=== PATIENT | female | born 1995 | race Caucasian/White ===

== ENCOUNTER 2017-09-26 00:31 | Observation (INO) ==
[2017-09-26] MEDS ORDERED: 0.9 % Sodium Chloride 1,000 ML IVC ONE (01:36)
[2017-09-26] MEDS ORDERED: Ondansetron 4 MG/2 ML VIAL IVP PRN ×2 (01:38→07:56)
--- NOTE | 2017-09-26 01:42 | Emergency Department Note ---
Disposition Clinical Impression: Acute appendicitis Qualifiers: Acute appendicitis type: unspecified acute appendicitis type Qualified Code(s) : K35.80 - Unspecified acute appendicitis Disposition: Admitted As Inpatient Condition: Good Referrals: Tiffanie Pantoja MD [Primary Care Provider] - Forms: ED Satisfaction Letter, Work/School Release Time of Disposition: 05:30 Abdominal Pain HPI - General Chief Complaint: ED Abdominal Pain Stated Complaint: ABD Pain Time Seen by Provider: 09/26/17 01:27 Source: patient Nursing Notes Reviewed: Yes Vital Signs Reviewed: Yes - History of Present Illness HPI Narrative: 21-year-old female presents with right lower quadrant abdominal pain. She mentions she first felt this yesterday him and describes it as stabbing. Had gone away, the returned when she [place] earlier today. She describes at that time was more severe, is accompanied with nausea. She does describe having 1 episode of vomiting. He states since that time the pain has been constant, and worsening. She had taken some antinausea medications that help with nausea, but that pain has persisted. She denies any migration, radiation of her pain. She mentioned she has felt fevers and chills. She mentioned she does have dyspareunia, however she mentions that has always been the case and denies any worse recently. She denies any dysuria, vaginal discharge, vaginal bleeding, flank pain, back pain, abnormal menstrual periods, new sexual partners. Pain Scale: 8 - Related Data Home Medications Medication Instructions Recorded Confirmed Control 10/04/15 CeleXA 10/04/15 Previous Rx's Medication Instructions Recorded Acetaminophen [Tylenol] 325 mg PO Q6HR PRN #10 tablet 10/04/15 Azithromycin [Azithromycin 6-Tab 250 mg PO DAILY 5 Days tab 10/04/15 Pack] Magic Mouthwash 5 ml PO TID PRN #120 ml 10/04/15 Doxycycline 100 mg PO BID #14 capsule 10/12/15 methylPREDNISolone [Medrol] 4 mg PO TAPER #21 tablet 10/12/15 Cyclobenzaprine [Flexeril] 10 mg PO HS #10 tablet 03/31/16 Allergies Allergy/AdvReac Type Severity Reaction Status Date / Time Penicillins [PCN] Allergy Hives Verified 03/31/16 00:18 All systems ED: reviewed and negative except as stated. Review of Systems: As Per HPI Constitutional: Denies: fever, chills, weakness Eyes: Denies: vision change ENT ED: Denies: throat pain Cardiovascular: Denies: palpitations Respiratory: Denies: dyspnea Gastrointestinal: Reports: as per HPI Genitourinary: Denies: dysuria, frequency, hematuria, discharge, abnormal menses Musculoskeletal: Denies: back pain, neck pain Integumentary: Denies: rash Neurological: Denies: headache Psychiatric: Denies: anxiety Endocrine: Denies: fatigue Hematological/Lymphatic: Denies: easy bleeding Allergic/Immunologic: Denies: facial swelling Abdominal Pain PMH - Past Medical History Medical history: Reports: no medical history Female Surgical History: Reports: Adenoidectomy, sinus surgery, Tonsillectomy [employer] history: Reports: no [employer] history Psychiatric history: Reports: depression - Social History Smoking status: Never smoker Alcohol use: Reports: none Drug use: Reports: none Physical Exam - General Limitations: no limitations General appearance: alert, in no apparent distress - Head Head exam: normocephalic - Eye Eye exam: Present: EOMI. Absent: conjunctival injection - ENT ENT exam: normal oropharynx, mucous membranes moist - Neck Neck exam: Present: normal inspection, full ROM - Chest Chest inspection: Present: normal inspection, symmetric chest wall rise - Respiratory Respiratory exam: Present: normal lung sounds bilaterally. Absent: respiratory distress - Cardiovascular Cardiovascular exam: Present: normal rhythm, tachycardia - Abdominal Exam Abdominal exam: Present: soft, tenderness, tenderness at McBurney's Point. Absent: distention, guarding, Sullivan's sign, Rovsing's sign Abdominal tenderness: Present: RLQ. Absent: epigastrium - Extremities Exam Extremities exam: Present: normal inspection, full ROM, normal capillary refill - Back Exam Back exam: Present: full ROM. Absent: CVA tenderness (R), CVA tenderness (L) - Neurological Exam Neurological exam: Present: alert, oriented X3 - Psychiatric Psychiatric exam: Present: normal affect, normal mood - Skin Skin exam: Present: warm, dry, intact, normal color. Absent: rash, cyanosis, diaphoresis Course Course Narrative: She is more pain, starting yesterday, but worsening more severe today. He comes with nausea and vomiting. Vital signs show that she is a low-grade fever. Tachycardic at 140. On exam she does have right lower quadrant tenderness. No flank pain. Patient denies any urinary symptoms, new sexual partners, or history of sexual transmitted diseases. She declines antiemetics and analgesics at this time. Fluids ordered. Workup initiated. - Reevaluation(s) Reevaluation #1: Trace amount of blood and urinate, otherwise her cup and appears unremarkable. Patient states nausea worsening, she is agreeable to antiemetics. She states her pain continues. Patient is agreeable for CT abdomen and pelvis. I did discuss this with Dr. Bahena who agreement. Time: 02:36 Reevaluation #2: CT scan reviewed, concerning for acute appendicitis. This was discussed with patient and her mother are the agreeable to surgery. We will attempt to control her pain, nausea. Surgery has been paged. Time: 04:40 - Consultations Consultation #1: Patient discussed with on-call general surgeon Dr. Angelo, who agreed to accept patient under her service, and advised for IV Cipro and Flagyl antibiotics. Time: 04:50 Consultation #2: Dr. Angelo called back and mentions she will see patient in ER in approx 20min. Time: 04:58 Vital Signs Temperature 99.9 F H 09/26/17 00:34 Pulse Rate 140 09/26/17 00:34 Respiratory Rate 18 09/26/17 00:34 Blood Pressure 114/70 09/26/17 00:34 O2 Sat by Pulse Oximetry 98 09/26/17 00:34 Temperature 98.2 F 09/26/17 04:45 Pulse Rate 112 09/26/17 04:45 Respiratory Rate 18 09/26/17 04:45 Blood Pressure 109/68 09/26/17 04:45 O2 Sat by Pulse Oximetry 98 09/26/17 04:45 Oxygen Delivery Oxygen Delivery Room Air Abdominal Pain - MDM Narrative Medical decision making narrative: 21-year-old female presents with right lower quadrant pain. Patient was discussed with Dr. Bahena, who also had face time with patient, and agreed with workup evaluation and CT scan. CT scan showed acute appendicitis. Patient was discussed with Dr. Angelo who has accepted patient, for surgery. Patient vitals have been stable. She initially had declined analgesics and antiemetics but was agreeable to some during her course here and her pain and nausea have been controlled. She was initially tachycardic but this did improve. Labwork unremarkable. Vitals have been stable. Abdomen/Pelvis CT 09/26/17 02:36 IMPRESSION: Findings are most compatible with acute appendicitis. No evidence of abscess or intra-abdominal free air. Hepatic steatosis. D/ / Jeff Olvera MD / Jeff Olvera MD Interpreting Provider: Jeff Olvera MD Laboratory Tests 09/26/17 09/26/17 09/26/17 01:41 01:41 01:50 WBC 7.3 RBC 4.55 Hgb 13.6 Hct 39.6 MCV 87.0 MCH 29.9 MCHC 34.3 RDW 11.9 Plt Count 259 MPV 9.8 Immature Gran % 0.4 Seg Neutrophils % 83.4 Lymphocytes % 10.9 Monocytes % 4.9 Eosinophils % 0.1 Basophils % 0.3 Neutrophils # 6.1 Lymphocytes # 0.8 Monocytes # 0.4 Eosinophils # 0.0 Basophils # 0.0 Sodium Potassium Chloride Carbon Dioxide BUN Creatinine Est GFR ( Amer) Est GFR (Non-Af Amer) BUN/Creatinine Ratio Glucose Calculated Osmolality Lactic Acid Calcium Total Bilirubin Direct Bilirubin Indirect Bilirubin AST ALT Alkaline Phosphatase Serum Total Protein Albumin Globulin Albumin/Globulin Ratio Lipase Urine Color Yellow Urine Clarity Clear Urine pH 6.5 Ur Specific Cunningham 1.006 L Urine Protein Negative Urine Glucose (UA) Normal Urine Ketones Negative Urine Blood Trace H Urine Nitrite Negative Urine Bilirubin Negative Urine Urobilinogen Normal Ur Leukocyte Esterase Negative Urine Microscopic RBC 0-3 Urine Microscopic WBC 0-3 Ur Squamous Epith Cells Moderate H Urine Bacteria None Seen Hyaline Casts None Seen Ur Culture Indicated? NO Urine Test Negative 09/26/17 09/26/17 01:50 01:50 WBC RBC Hgb Hct MCV MCH MCHC RDW Plt Count MPV Immature Gran % Seg Neutrophils % Lymphocytes % Monocytes % Eosinophils % Basophils % Neutrophils # Lymphocytes # Monocytes # Eosinophils # Basophils # Sodium 135 L Potassium 3.5 Chloride 106 Carbon Dioxide 22 L BUN 9 Creatinine 0.73 Est GFR ( Amer) > 60 Est GFR (Non-Af Amer) > 60 BUN/Creatinine Ratio 12 Glucose 106 H Calculated Osmolality 279 L Lactic Acid 0.7 Calcium 9.1 Total Bilirubin 0.6 Direct Bilirubin 0.1 Indirect Bilirubin 0.5 AST 14 ALT 9 Alkaline Phosphatase 48 Serum Total Protein 7.2 Albumin 4.0 Globulin 3.2 Albumin/Globulin Ratio 1.3 Lipase 10 L Urine Color Urine Clarity Urine pH Ur Specific [place] Urine Protein Urine Glucose (UA) Urine Ketones Urine Blood Urine Nitrite Urine Bilirubin Urine Urobilinogen Ur Leukocyte Esterase Urine Microscopic RBC Urine Microscopic WBC Ur Squamous Epith Cells Urine Bacteria Hyaline Casts Ur Culture Indicated? Urine Test - Lab Data Lab results reviewed: Yes I reviewed the patient's lab results. Result diagrams: 09/26/17 01:50 09/26/17 01:50 Lab Results 09/26/17 09/26/17 09/26/17 Range/Units 01:41 01:41 01:50 WBC 7.3 (4.3-11.1) K/mcL RBC 4.55 (3.82-4.97) M/mcL Hgb 13.6 (11.5-15.4) g/dL Hct 39.6 (35.3-44.9) % MCV 87.0 (83.0-100.0) fL MCH 29.9 (28.0-33.3) pg MCHC 34.3 (31.6-35.5) g/dL RDW 11.9 (11.5-14.5) % Plt Count 259 (140-400) K/mcL MPV 9.8 (9.4-12.4) fL Immature Gran % 0.4 (0-4) % Seg Neutrophils % 83.4 % Lymphocytes % 10.9 % Monocytes % 4.9 % Eosinophils % 0.1 % Basophils % 0.3 % Neutrophils # 6.1 (1.6-8.9) K/mcL Lymphocytes # 0.8 (0.6-4.6) K/mcL Monocytes # 0.4 (0.0-1.3) K/mcL Eosinophils # 0.0 (0.0-0.6) K/mcL Basophils # 0.0 (0.0-0.2) K/mcL Sodium (136-145) mEq/L Potassium (3.5-5.1) mEq/L Chloride (98-107) mEq/L Carbon Dioxide (23-29) mEq/L BUN (6-20) mg/dL Creatinine (0.60-1.20) mg/dL Est GFR ( Amer) (> 60) Est GFR (Non-Af Amer) (> 60) BUN/Creatinine Ratio (6-26) Glucose (70-105) mg/dL Calculated Osmolality (280-300) Lactic Acid (0.5-2.2) mmol/L Calcium (8.6-10.3) mg/dL Total Bilirubin (0.3-1.0) mg/dL Direct Bilirubin (0.0-0.2) mg/dL Indirect Bilirubin (0.0-1.2) mg/dL AST (13-39) Units/L ALT (7-52) Units/L Alkaline Phosphatase (34-104) Units/L Serum Total Protein (6.4-8.9) g/dL Albumin (3.5-5.7) g/dL Globulin (2.4-3.5) g/dL Albumin/Globulin Ratio (1.1-2.2) Lipase (11-82) Units/L Urine Color Yellow (Yellow) Urine Clarity Clear (Clear) Urine pH 6.5 (5.0-8.0) pH Units Ur Specific [place] 1.006 L (1.010-1.025) Urine Protein Negative (Neg-Trace) mg/dL Urine Glucose (UA) Normal (Normal) mg/dL Urine Ketones Negative (Negative) mg/dL Urine Blood Trace H (Negative) Urine Nitrite Negative (Negative) Urine Bilirubin Negative (Negative) Urine Urobilinogen Normal (Normal) mg/dL Ur Leukocyte Esterase Negative (Negative) Urine Microscopic RBC 0-3 (0-3) per hpf Urine Microscopic WBC 0-3 (0-3) per hpf Ur Squamous Epith Cells Moderate H (None-Few) per lpf Urine Bacteria None Seen (None-Few) per hpf Hyaline Casts None Seen (None-Few) per lpf Ur Culture Indicated? NO (NO) Urine Test Negative (Negative) 09/26/17 09/26/17 Range/Units 01:50 01:50 WBC (4.3-11.1) K/mcL RBC (3.82-4.97) M/mcL Hgb (11.5-15.4) g/dL Hct (35.3-44.9) % MCV (83.0-100.0) fL MCH (28.0-33.3) pg MCHC (31.6-35.5) g/dL RDW (11.5-14.5) % Plt Count (140-400) K/mcL MPV (9.4-12.4) fL Immature Gran % (0-4) % Seg Neutrophils % % Lymphocytes % % Monocytes % % Eosinophils % % Basophils % % Neutrophils # (1.6-8.9) K/mcL Lymphocytes # (0.6-4.6) K/mcL Monocytes # (0.0-1.3) K/mcL Eosinophils # (0.0-0.6) K/mcL Basophils # (0.0-0.2) K/mcL Sodium 135 L (136-145) mEq/L Potassium 3.5 (3.5-5.1) mEq/L Chloride 106 (98-107) mEq/L Carbon Dioxide 22 L (23-29) mEq/L BUN 9 (6-20) mg/dL Creatinine 0.73 (0.60-1.20) mg/dL Est GFR ( Amer) > 60 (> 60) Est GFR (Non-Af Amer) > 60 (> 60) BUN/Creatinine Ratio 12 (6-26) Glucose 106 H (70-105) mg/dL Calculated Osmolality 279 L (280-300) Lactic Acid 0.7 (0.5-2.2) mmol/L Calcium 9.1 (8.6-10.3) mg/dL Total Bilirubin 0.6 (0.3-1.0) mg/dL Direct Bilirubin 0.1 (0.0-0.2) mg/dL Indirect Bilirubin 0.5 (0.0-1.2) mg/dL AST 14 (13-39) Units/L ALT 9 (7-52) Units/L Alkaline Phosphatase 48 (34-104) Units/L Serum Total Protein 7.2 (6.4-8.9) g/dL Albumin 4.0 (3.5-5.7) g/dL Globulin 3.2 (2.4-3.5) g/dL Albumin/Globulin Ratio 1.3 (1.1-2.2) Lipase 10 L (11-82) Units/L Urine Color (Yellow) Urine Clarity (Clear) Urine pH (5.0-8.0) pH Units Ur Specific Cunningham (1.010-1.025) Urine Protein (Neg-Trace) mg/dL Urine Glucose (UA) (Normal) mg/dL Urine Ketones (Negative) mg/dL Urine Blood (Negative) Urine Nitrite (Negative) Urine Bilirubin (Negative) Urine Urobilinogen (Normal) mg/dL Ur Leukocyte Esterase (Negative) Urine Microscopic RBC (0-3) per hpf Urine Microscopic WBC (0-3) per hpf Ur Squamous Epith Cells (None-Few) per lpf Urine Bacteria (None-Few) per hpf Hyaline Casts (None-Few) per lpf Ur Culture Indicated? (NO) Urine Test (Negative) Attestation Statement - Attestation Attestation: I examined this patient and my medical decision-making was reviewed with the Resident Physician. I agree with the documented findings, disposition and treatment plan as described except to the extent set forth below. Findings consistent with acute appendicitis. Patient will be admitted to general surgery.
[2017-09-26 02:03] LABS: Bilirubin,Urine Negative (Negative); Blood,Urine Trace (Negative); Clarity,Urine Clear (Clear); Color,Urine Yellow (Yellow); Glucose,Urine (UA) Normal (Normal); Ketones,Urine Negative (Negative); Leukocyte Esterase,Urine Negative (Negative); Nitrite,Urine Negative (Negative); PH,Urine 6.5 pH Units (5.0-8.0); Protein,Urine Negative (Neg-Trace); Specific Gravity,Urine 1.006 (1.010-1.025); Urobilinogen,Urine Normal (Normal)
[2017-09-26 02:06] LABS: Basophils % 0.3 %; Eosinophils % 0.1 %; Hematocrit 39.6 % (35.3-44.9); Hemoglobin 13.6 g/dL (11.5-15.4); Immature Granulocytes % 0.4 % (0-4); Lymphocytes # 0.8 K/mcL (0.6-4.6); Lymphocytes % 10.9 %; Mean Corpuscular HGB Conc 34.3 g/dL (31.6-35.5); Mean Corpuscular Hemoglobin 29.9 pg (28.0-33.3); Mean Platelet Volume 9.8 fL (9.4-12.4); Monocytes # 0.4 K/mcL (0.0-1.3); Monocytes % 4.9 %; Neutrophils # 6.1 K/mcL (1.6-8.9); Platelet Count 259 K/mcL (140-400); Red Blood Count 4.55 M/mcL (3.82-4.97); Red Cell Distribution Width 11.9 % (11.5-14.5); Segmented Neutrophils % 83.4 %
[2017-09-26 02:06] LABS: Bacteria,Urine None Seen per hpf (None-Few); Hyaline Casts,Urine None Seen per lpf (None-Few); RBC,Urine 0-3 per hpf (0-3); Squamous Epithelial Cell,Urine Moderate per lpf (None-Few); WBC,Urine 0-3 per hpf (0-3)
[2017-09-26 02:23] LABS: Alanine Aminotransferase 9 Units/L (7-52); Albumin/Globulin Ratio 1.3 (1.1-2.2); Alkaline Phosphatase 48 Units/L (34-104); Aspartate Amino Transferase 14 Units/L (13-39); BUN/Creatinine Ratio 12 (6-26); Bilirubin,Direct 0.1 mg/dL (0.0-0.2); Bilirubin,Indirect 0.5 mg/dL (0.0-1.2); Bilirubin,Total 0.6 mg/dL (0.3-1.0); Blood Urea Nitrogen 9 mg/dL (6-20); Calcium 9.1 mg/dL (8.6-10.3); Carbon Dioxide 22 mEq/L (23-29); Chloride 106 mEq/L (98-107); Globulin 3.2 g/dL (2.4-3.5); Glucose 106 mg/dL (70-105); Lipase 10 Units/L (11-82); Osmolality,Calculated 279 (280-300); Potassium 3.5 mEq/L (3.5-5.1); Sodium 135 mEq/L (136-145); Total Protein 7.2 g/dL (6.4-8.9); eGFR For African Americans > 60 (> 60); eGFR For Non-African Americans > 60 (> 60)
[2017-09-26] MEDS ORDERED: Isovue-370 500 ML INFUS..BTL IV ONE (02:36)
[2017-09-26] MEDS ORDERED: MetroNIDAZOLE 500 MG/100 ML 500 MG/100 ML BAG IVPB ONE (04:50)
[2017-09-26] MEDS ORDERED: *HR* Nalbuphine 10 MG/ML AMPUL IVP ONE (04:54)
--- NOTE | 2017-09-26 05:33 | Anesthesia Evaluation PreOp ---
Date of Encounter: 09/26/17 Time of Encounter: 06:03 - Past History Planned Operation: Lap appy Cardiac History: Denies any Significant Hx Pulmonary History: Asthma [employer] History: Other (scoliosis) Other Medical History: Denies Any Significant HX Anesthesia History: No Prior Anesthetic Complications (except waking up combative (wanting to pull out IV's, etc)), Past Anesthesia (Adenoidectomy, sinus surgery, Tonsillectomy) Alcohol Use: none Drug use: none Medications and Allergies Acetaminophen [Tylenol] 325 mg PO Q6HR PRN #10 tablet 10/04/15 [Rx] Azithromycin [Azithromycin 6-Tab Pack] 250 mg PO DAILY 5 Days tab 10/04/15 [Rx] Control 10/04/15 [History] CeleXA 10/04/15 [History] Magic Mouthwash 5 ml PO TID PRN #120 ml 10/04/15 [Rx] Doxycycline 100 mg PO BID #14 capsule 10/12/15 [Rx] methylPREDNISolone [Medrol] 4 mg PO TAPER #21 tablet 10/12/15 [Rx] Cyclobenzaprine [Flexeril] 10 mg PO HS #10 tablet 03/31/16 [Rx] 3 Allergy/AdvReac Type Severity Reaction Status Date / Time Penicillins [PCN] Allergy Hives Verified 03/31/16 00:18 - Meds/Allergy Pre-op Review Medications Reviewed: Yes Allergies Reviewed: Yes Beta Blockers on Current Med List: No Anesthesia Results - Labs 09/26/17 01:50 09/26/17 01:50 Anesthesia Exam Last Vital Signs Temp 98.2 F 09/26/17 04:45 Pulse 112 09/26/17 04:45 Resp 18 09/26/17 04:45 BP 109/68 09/26/17 04:45 Pulse Ox 98 09/26/17 04:45 Weight: 49 kg - HEENT Pupil (Motor): Pupils equal, EOMI Mallampati: I Teeth: Normal Oral Opening: Greater than 3 - [employer] LOC: Oriented - Cardiac Rhythm: Regular Murmur: None - Pulmonary Breath Sounds: bilateral Clear Respiratory Effort: Symmetrical Anesthesia Assess/Plan ASA Score: 2 Modified Hammond Scale for Level of Consciousness: Cooperative, oriented, and tranquil Anesthetic Plan: General Monitoring Plan: Standard Monitors Recovery Plan: PACU
[2017-09-26] MEDS ORDERED: *HR* Succinylcholine 200 MG/10 ML VIAL IVP ONE (05:38)
[2017-09-26] MEDS ORDERED: Lidocaine -MPF 2% 2 ML VIAL ONE (05:38)
[2017-09-26] MEDS ORDERED: *HR* Propofol 200 MG/20 ML VIAL IVP ONE (05:38)
[2017-09-26] MEDS ORDERED: *HR* Midazolam HCl 2 MG/2 ML VIAL ONE (05:38)
[2017-09-26] MEDS ORDERED: *HR* FentaNYL (PF) 100 MCG/2 ML VIAL ONE (05:38)
--- NOTE | 2017-09-26 05:38 | General Surg History&Physical ---
Date of Encounter: 09/26/17 Time of Encounter: 05:36 Assessment and Plan (1) Acute appendicitis Current Visit: Yes Status: Acute The assessment and plan as outlined above was discussed with the patient and/or family members who expressed understanding and agreement. All questions were answered. discussed CT results with patient and her mother - acute appendicitis, will plan laparoscopic appendectomy possible open, risks and benefits discussed with patient and she wishes to proceed npo prn pain control prn antiemetics cipro/flagyl Qualifiers: Acute appendicitis type: unspecified acute appendicitis type Qualified Code (s): K35.80 - Unspecified acute appendicitis History of Present Illness Chief complaint: abdominal pain, nausea, emesis HPI: Ms. Briceno is a 21 year old female with RLQ abdominal pain starting yesterday, which is sharp without radiation. She had nausea and emesis x1 today. She was febrile. She had some diarrhea today. No chills or night sweats. States pain isnt that bad. CT scan shows acute appendicitis. Past Med Surg Social Fam HX - Past Medical History Source: patient Medical history: asthma, other (scoliosis, eczema) Psychiatric history: depression - Past Surgical History Surgical History: other (wisdom teeth, B/L ethmoidectomy, maxillary antrostomy, inferior turbinate resection, T/A) - Social History Smoking Status: Never smoker Smokeless Tobacco Status: No Alcohol use: none Drug use: none - Family History Grandmother History Unknown: Yes Medications and Allergies Acetaminophen [Tylenol] 325 mg PO Q6HR PRN #10 tablet 10/04/15 [Rx] Azithromycin [Azithromycin 6-Tab Pack] 250 mg PO DAILY 5 Days tab 10/04/15 [Rx] Control 10/04/15 [History] CeleXA 10/04/15 [History] Magic Mouthwash 5 ml PO TID PRN #120 ml 10/04/15 [Rx] Doxycycline 100 mg PO BID #14 capsule 10/12/15 [Rx] methylPREDNISolone [Medrol] 4 mg PO TAPER #21 tablet 10/12/15 [Rx] Cyclobenzaprine [Flexeril] 10 mg PO HS #10 tablet 03/31/16 [Rx] 3 Allergy/AdvReac Type Severity Reaction Status Date / Time Penicillins [PCN] Allergy Hives Verified 03/31/16 00:18 Review of Systems All systems PM: reviewed and no additional remarkable complaints except as stated All systems PM: The remainder of the systems were reviewed and are negative General Surgery Exam Initial Vital Signs Temp Pulse Resp BP Pulse Ox 99.9 F H 140 18 114/70 98 09/26/17 00:34 09/26/17 00:34 09/26/17 00:34 09/26/17 00:34 09/26/17 00:34 Results - Labs 09/26/17 01:50 09/26/17 01:50 Abnormal lab results Sodium 135 mEq/L (136-145) L 09/26/17 01:50 Carbon Dioxide 22 mEq/L (23-29) L 09/26/17 01:50 Glucose 106 mg/dL (70-105) H 09/26/17 01:50 Calculated Osmolality 279 (280-300) L 09/26/17 01:50 Lipase 10 Units/L (11-82) L 09/26/17 01:50 Ur Specific [place] 1.006 (1.010-1.025) L 09/26/17 01:41 Urine Blood Trace (Negative) H 09/26/17 01:41 Ur Squamous Epith Cells Moderate per lpf (None-Few) H 09/26/17 01:41 All other labs normal. - Imaging CT scan - abdomen: report reviewed, image reviewed CT scan - pelvis: report reviewed, image reviewed
[2017-09-26] MEDS ORDERED: Ondansetron 4 MG/2 ML VIAL ONE (05:43)
[2017-09-26] MEDS ORDERED: Dexamethasone 4 MG/ML VIAL ONE (05:43)
[2017-09-26] MEDS ORDERED: Albuterol 2.5 MG/3 ML NEBULIZER IH ONE (06:04)
[2017-09-26] MEDS ORDERED: *HR* OxyCODONE Immed Rel 5 MG TABLET PO PRN (06:04)
[2017-09-26] MEDS ORDERED: Acetaminophen IV 1,000 MG/100 ML INFUS..BTL ONE (06:07)
[2017-09-26] MEDS: Albuterol 2.5 MG/3 ML NEBULIZER ONE ×2 (06:08→08:35)
[2017-09-26] MEDS ORDERED: *HR* Rocuronium Bromide 50 MG/5 ML VIAL ONE (06:21)
[2017-09-26] MEDS ORDERED: Ketorolac 30 MG/ML VIAL ONE (06:32)
[2017-09-26] MEDS ORDERED: Neostigmine Methylsulfate 3 MG/3 ML SYRINGE ONE (06:32)
--- NOTE | 2017-09-26 07:07 | Operative Note ---
Date of procedure: 09/26/17 Pre-op diagnosis: acute appendicitis Post-op diagnosis: same Procedure: Laparoscopic appendectomy Complications: none immediate Anesthesia: GETA, local Local Anesthetics: 0.5% Sensorcaine HCL SubQ (cc) Surgeon: Jeanne Angelo Was there an pastry assistant present: No Estimated blood loss (cc): 5 Specimen: appendix Condition: stable Disposition: PACU Procedure in Detail: The patient was brought into the operating suite and placed supine on the operating table. Sign-in was performed and everyone was in agreement. Anesthesia was induced and patient was endotracheally intubated by anesthesia without incident. An OG tube was placed by anesthesia. The abdomen was prepped and draped in the usual sterile fashion. A timeout was performed and again everyone was in agreement. A supraumbilical incision was made through the skin and the subcutaneous tissue with an 11 blade. Towel clamps were placed on either side of the umbilicus for retraction. S-retractors were used to dissect down to the anterior abdominal wall linea alba fascia. A Veress needle was placed into this incision and a water drop test confirmed placement and the abdomen was insufflated. We then entered the abdomen with the 5 mm 0 degree laparoscope on a 5 mm X-estella trocar. The area under entry was visualized and there was no bleeding and no apparent bowel injury. We placed a suprapubic 5 mm port under direct visualization after first incising the skin with an 11 blade. The laparoscope was placed through this and we exchanged the supraumbilical port for a 12 mm port under direct visualization. We then placed another 5 mm port in the left lower quadrant position under direct visualization after first incising the skin with an 11 blade. The patient was placed in slight Trendelenburg left side down position. The cecum was located as was the appendix. The appendix was grasped and retracted anteriorly and caudally with a laparoscopic [place]. A [place] was used to dissect between the mesoappendix and the appendix at the base of the cecum. The mesoappendix was transected with a laparoscopic flex-ex ETS stapler using a white load. The appendix was transected at the base of the cecum with the same stapler utilizing a white load. The appendix was placed in a laparoscopic Endo Catch bag and removed via the supraumbilical incision site. Both staple lines were evaluated and there was no bleeding and both staple lines were intact. The area was irrigated with sterile saline which was then suctioned free from the abdomen. The insufflation was suctioned free from the abdomen and all trochars removed. We closed the abdominal wall at the supraumbilical incision site with an 0 Vicryl [id number] stitch. A 30 cc of 0.5% Marcaine was injected subcutaneously at the 3 port sites. The skin at the two 5 mm port sites was closed with 4-0 Monocryl interrupted subcuticular stitches. The skin at the supraumbilical incision site was closed with a 4-0 Monocryl running subcuticular stitch. Steri-Strips were applied to the wounds. The patient was extubated in the OR and tolerated the procedure well and was taken to PACU after all lap and instrument counts were correct at the end of the case.
--- NOTE | 2017-09-26 07:30 | Anesthesia Evaluation Post Op ---
Date of Encounter: 09/26/17 Time of Encounter: 07:30 - Vital Signs Vital Signs: Last Vital Signs Temp 98.6 F 09/26/17 07:12 Pulse 96 09/26/17 07:22 Resp 16 09/26/17 07:22 BP 109/67 09/26/17 07:22 Pulse Ox 100 09/26/17 07:22 - Lungs Lungs: Clear Ascult./Percussion - Airway Airway: Non-obstructed - Cardiovascular Regular Rate - Mental Status Mental Status: Alert & Oriented, Answers Appropriately - Pain Pain Scale: 2 - Nausea Vomiting Nausea Vomiting: Not Present - Hydration Hydration: NPO - Discharge PostOp Status: Transfer Patient to floor
[2017-09-26] MEDS ORDERED: *HR* Promethazine 25 MG/ML VIAL IVP PRN (07:56)
[2017-09-26] MEDS ORDERED: *HR* OxyCODONE Oral Soln 5 MG/5 ML UD.LIQ PO PRN (07:56)
[2017-09-26] MEDS ORDERED: *HR* OxyCODONE/APAP 5/325 TABLET PO PRN (07:56)
[2017-09-26] MEDS ORDERED: 0.9 % Sodium Chloride 1,000 ML IVC SCH (07:56)
[2017-09-26] MEDS ORDERED: Naloxone 0.4 MG/ML INJ IVP PRN (07:56)
--- NOTE | 2017-09-26 09:01 | Discharge Summary ---
<Aracelis Garcia - Last Filed: 09/26/17 09:22> Orders not resulted at time of discharge: Pending orders 09/26/17 06:56 Surgical Pathology [PTH] Routine Date of Encounter: 09/26/17 Time of Encounter: 09:01 - Discharge Diagnosis (1) Acute appendicitis Priority: Primary Status: Resolved Qualifiers: Acute appendicitis type: unspecified acute appendicitis type Qualified Code (s): K35.80 - Unspecified acute appendicitis General Surgery Exam Initial Vital Signs Temp Pulse Resp BP Pulse Ox 99.9 F H 140 18 114/70 98 09/26/17 00:34 09/26/17 00:34 09/26/17 00:34 09/26/17 00:34 09/26/17 00:34 VITAL SIGNS: Reviewed. See [facility] GENERAL: In no apparent distress. HEENT: Normocephalic, atraumatic, pupils are equal and reactive, extraocular motions intact, oropharynx is pink and moist, there is no neck adenopathy or JVD noted. CHEST/RESPIRATORY: The thorax is free from signs of trauma. Lung sounds: clear to auscultation, normal respiratory effort CARDIAC: Regular rate and rhythm. Normal S1 and S2, without murmurs, gallops, or rubs. VASCULAR: No Edema. 2+ peripheral pulses. ABDOMEN: soft, hypoactive bowel sounds, expected postoperative tenderness INCISION: Surgical incision is clean, dry, and intact. There are no signs of cellulitis or infection noted. MUSCULOSKELETAL: Good range of motion of all major joints. Extremities without clubbing, cyanosis or edema. NEUROLOGIC EXAM: Alert and oriented x 3. Speech normal. Follows commands. PSYCHIATRIC: Mood normal. SKIN: No rash or lesions. - Hospital Course Hospital course: Ms. Briceno is a 21 year old female who presented on 09/25/2017 with complaints of right lower quadrant pain. Her CT was consistent with acute appendicitis and she was taken to the operating room where she underwent an uncomplicated laparoscopic appendectomy. She is ambulating and voiding without difficulty, tolerating liquids without nausea or vomiting, vital signs are stable, and she is afebrile. We will begin discharge planning to home with a follow-up in the office in approximately 2 weeks. - Time Spent with Patient Total time spent providing and/or coordinating discharge services: Less than 30 minutes - Discharge Medications Prescriptions: OxyCODONE/APAP 5/325 [Percocet 5/325 MG] 1 each PO Q6HR PRN 7 Days #28 tablet PRN Reason: Pain Docusate Sodium [Colace] 100 mg PO BID #30 capsule Ibuprofen [Ibu] 800 mg PO Q8H #30 tablet Ondansetron ODT [Zofran ODT] 4 mg PO Q4H #30 tab.rapdis Home Medications: Citalopram Hydrobromide [Citalopram HBr] 30 mg PO DAILY 09/26/17 [History] Docusate Sodium [Colace] 100 mg PO BID #30 capsule 09/26/17 [Rx] Ibuprofen [Ibu] 800 mg PO Q8H #30 tablet 09/26/17 [Rx] Norgestimate-Ethinyl Estradiol [Ortho-Cyclen 28 Tablet] 1 tab PO DAILY 09/26/17 [History] Ondansetron ODT [Zofran ODT] 4 mg PO Q4H #30 tab.rapdis 09/26/17 [Rx] OxyCODONE/APAP 5/325 [Percocet 5/325 MG] 1 each PO Q6HR PRN 7 Days #28 tablet [Rx] Allergies/Adverse Reactions: 3 Allergy/AdvReac Type Severity Reaction Status Date / Time Penicillins [PCN] Allergy Hives Verified 03/31/16 00:18 Date of admission: 09/26/17 05:31 Primary care physician: Tiffanie Gross Discharging clinician: Jeanne Angelo (Pearl Garcia) - Patient Status Disposition: Home, Self-Care Condition: Good Functional capacity at discharge: independent ambulation Overall status at discharge: patient is progressing back to baseline - Discharge Instructions Instructions: Laparoscopic Appendectomy (DC) Follow Up With: Tiffanie Pantoja MD [Primary Care Provider] - Aracelis Garcia CNP [Advanced Practice Nurse] - 10/11/17 3:15 pm Forms: Work/School Release Additional Instructions: General Surgical Discharge Instructions 1. No pushing, pulling, or lifting greater than 15 lbs for 2-4 weeks (depending upon procedure). 2. You may shower beginning today, but no tub baths, soaking, or swimming for 2 weeks. 3. You may resume driving when you are off narcotics and are safe to react in a car. 4. Take ibuprofen every 8 hours for discomfort. If this does not relieve discomfort, you may take the as needed Percocet. Take narcotics as directed. Do not take more narcotics then directed and do not share your narcotics with any other person. Do not drink alcohol while on narcotics. 5. Take stool softeners (Colace) or a water based laxative (Miralax) while taking narcotics. You may hold for loose stools. 6. Report any fevers greater than 100.5F, increase abdominal discomfort, drainage that looks like pus, increased redness or pain at the surgical site, or any vomiting. 7. Report any pain in the calves, shortness of breath, or rapid heartbeat. 8. Follow-up in the office as directed. 9. If you were prescribed antibiotics, do not stop them without talking to your provider. - Diet and Activity Activity: increase activity as tolerated Diet: advance to your usual diet <Jeanne Angelo - Last Filed: 09/26/17 15:59> Orders not resulted at time of discharge: Pending orders 09/26/17 06:56 Surgical Pathology [PTH] Routine Date of Encounter: 09/26/17 - Discharge Diagnosis (1) Acute appendicitis Status: Resolved Qualifiers: Acute appendicitis type: unspecified acute appendicitis type Qualified Code (s): K35.80 - Unspecified acute appendicitis General Surgery Exam Initial Vital Signs Temp Pulse Resp BP Pulse Ox 99.9 F H 140 18 114/70 98 09/26/17 00:34 09/26/17 00:34 09/26/17 00:34 09/26/17 00:34 09/26/17 00:34 - Hospital Course Hospital course: Ms. Briceno is a 21 year old female - Time Spent with Patient Total time spent providing and/or coordinating discharge services: Date of admission: 09/26/17 05:31 Primary care physician: Tiffanie [facility]
[2017-09-26 12:32] VITALS: BP 93/56
== END 2017-09-26 13:10 | disposition home or self-care (01) ==
LOC: 3ANU 00:31 → EMEROO 00:31 → 3ANU 06:01
PROVIDERS: ADMIT Surgery; ATTEND Surgery